=== PATIENT | female | born 1980 | race African-American/Black ===

== ENCOUNTER 2024-01-29 06:56 | Day surgery (SDC) | payer MEDICAID ==
[~2024-01-29] VITALS: Ht 175.3 cm; Wt 73.9 kg
[2024-01-29 07:34] LABS: HCG,QUAL RESULT NEGATIVE (NEGATIVE)
[2024-01-29] MEDS ORDERED: MEPERIDINE 100 MG INJ. 100 MG/ML VIAL ONE (08:26)
[2024-01-29] MEDS ORDERED: MIDAZOLAM HCL 5 MG/5 ML VIAL ONE (08:26)
[2024-01-29] MEDS ORDERED: BENZOCAINE 20% 0.5mL UD SPRAY MM ONE (08:33)
[2024-01-29 09:36] VITALS: O2SAT 100
[2024-01-29 13:16] VITALS: BP_SYST 100; PULSE 99; RESP 18
== END 2024-01-29 10:05 | disposition home or self-care (01) ==
LOC: SDS 06:56 → SMU 06:58 → SDS 10:05
PROVIDERS: ATTEND Internal Medicine
DX: R19.4 Change in bowel habit (principal); D12.3 Benign neoplasm of transverse colon; A63.0 Anogenital (venereal) warts; K29.50 Unspecified chronic gastritis without bleeding; B96.81 Helicobacter pylori [H. pylori] as the cause of diseases classified elsewhere; K31.A0 Gastric intestinal metaplasia, unspecified; R10.13 Epigastric pain; K64.8 Other hemorrhoids; K44.9 Diaphragmatic hernia without obstruction or gangrene; E78.5 Hyperlipidemia, unspecified; M19.90 Unspecified osteoarthritis, unspecified site; Z98.890 Other specified postprocedural states; Z80.0 Family history of malignant neoplasm of digestive organs
CPT/HCPCS: 45380; 45385; 43239; 99152; 84703; 88305; 88312; 88313; 99153; G0378; J2250; J2175